=== PATIENT | female | born 2000 | race Hispanic/Latino ===

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

== ENCOUNTER 2022-01-22 12:28 | Outpatient (CLI) | payer OTHER ==
[~2022-01-22] VITALS: Ht 149.9 cm; Wt 61.8 kg
[~2022-01-22 12:28] MED LIST changes: +ONDA4TAB6 PO
[2022-01-22 12:46] VITALS: BP 109/64
[2022-01-22] MEDS ORDERED: HOME MED LIST COMPLETE! XX SCH (12:55)
[2022-01-22 14:26] VITALS: BP 106/56
[2022-01-22] MEDS ORDERED: CYCLOBENZAPRINE 10MG TABLET PO ONE (15:00)
== END 2022-01-22 15:20 | disposition home or self-care (01) ==
LOC: M LDO 12:28
PROVIDERS: ATTEND Obstetrics & Gynecology
DX: O26.892 Other specified pregnancy related conditions, second trimester (principal); R25.2 Cramp and spasm; Z3A.24 24 weeks gestation of pregnancy; M54.50 Low back pain, unspecified; O99.282 Endocrine, nutritional and metabolic diseases complicating pregnancy, second trimester; E86.0 Dehydration
CPT/HCPCS: 59025; 81001; G0378; G0463

== ENCOUNTER 2022-04-08 08:49 | Outpatient (CLI) | payer OTHER ==
[~2022-04-08] VITALS: Ht 149.9 cm; Wt 63.8 kg
[2022-04-08 09:11] VITALS: BP 95/61
[2022-04-08] MEDS ORDERED: HOME MED LIST COMPLETE! XX SCH (09:20)
== END 2022-04-08 12:00 | disposition home or self-care (01) ==
LOC: M LDO 08:49
PROVIDERS: ATTEND Registered Nurse
DX: O26.893 Other specified pregnancy related conditions, third trimester (principal); R07.89 Other chest pain; Z3A.35 35 weeks gestation of pregnancy
CPT/HCPCS: 59025; 81001; 93005; G0378; G0463

== ENCOUNTER 2022-04-27 16:24 | Outpatient (CLI) | payer OTHER ==
[~2022-04-27] VITALS: Ht 149.9 cm; Wt 65.5 kg
[2022-04-27 16:46] VITALS: BP 113/70
[2022-04-27] MEDS ORDERED: LR 1,000 ML IV ONE (18:30)
== END 2022-04-27 19:44 | disposition home or self-care (01) ==
LOC: M LDO 16:24
PROVIDERS: ATTEND Obstetrics & Gynecology
DX: O36.8130 Decreased fetal movements, third trimester, not applicable or unspecified (principal); Z3A.37 37 weeks gestation of pregnancy
CPT/HCPCS: 59025; G0463

== ENCOUNTER 2022-04-29 05:10 | Inpatient (IN) | payer OTHER ==
[~2022-04-29] VITALS: Ht 149.9 cm; Wt 65.0 kg
[2022-04-29] VITALS (51 sets, daily range): BP systolic 88–150; BP diastolic 49–97
[2022-04-29] MEDS ORDERED: HOME MED LIST COMPLETE! XX SCH (05:35)
[2022-04-29] MEDS ORDERED: OXYTOCIN DRIP 30 UNITS in IV 1 EA IV PRN ×4 (05:50)
[2022-04-29] MEDS ORDERED: METHYLERGONOVINE MALEATE 0.2 MG/ML VIAL (J2210) IM PRN (05:50)
[2022-04-29] MEDS ORDERED: TRANEXAMIC ACID INJection 1,000 MG in NS 100 ML IV PRN (05:50)
[2022-04-29] MEDS ORDERED: LACTATED RINGER'S 1000 ML IV ONE (05:50)
[2022-04-29] MEDS ORDERED: OXYTOCIN INJ 10 UNITS/ML VIAL (J2590) IV PRN (05:50)
[2022-04-29 06:37] LABS: HEMATOCRIT 36.4 % (36.0-47.0); HEMOGLOBIN 11.7 g/dl (12.0-15.5); MEAN CORPUSCULAR HEMOGLOBIN 27.6 pg (27.0-33.0); MEAN CORPUSCULAR HGB CONC 32.1 g/dl (32.0-36.5); MEAN CORPUSCULAR VOLUME 85.8 fl (80.0-96.0); PLATELET COUNT, AUTOMATED 266 10^3/uL (150-450); RED BLOOD COUNT 4.24 10^6/uL (4.00-5.40); WHITE BLOOD COUNT 17.1 10^3/uL (4.0-10.0)
[2022-04-29] MEDS ORDERED: PENICILLIN G POTASSIUM IV 5 MU in D5W MINI-BAG PLUS 100 ML IV ONE (07:00)
[2022-04-29] MEDS ORDERED: ONDANSETRON 4MG 2ML VIAL IV PRN ×2 (07:20→23:55)
[2022-04-29] MEDS ORDERED: EPIDURAL/PCA KEYS XX PRN (07:20)
[2022-04-29] MEDS ORDERED: diphenhydrAMINE 50MG/ML VIAL (J1200) IV PRN ×2 (07:20→23:55)
[2022-04-29] MEDS ORDERED: LR 500 ML IV PRN (07:20)
[2022-04-29] MEDS ORDERED: NALOXONE INJ 0.4MG/1ML VIAL (J2310 PER 1MG) IV PRN ×3 (07:20→23:55)
[2022-04-29] MEDS ORDERED: REFLB XX ONE ×4 (07:25→16:24)
[2022-04-29] MEDS: FENTANYL/ROPIVACAINE/NACL BAG 100 ML EPIDURAL SCH ×2 (07:30→16:32)
[2022-04-29] MEDS: LR 1,000 ML IV SCH ×3 (07:49→13:47)
[2022-04-29] MEDS: ePHEDrine SULFATE 25 MG/5 ML(5MG/ML) SYRINGE IVP PRN ×6 (09:20→15:48)
[2022-04-29] MEDS: PENICILLIN G POTASSIUM IV 2.5 MU in IV 1 EA IV SCH ×3 (11:47→19:21)
[2022-04-29] MEDS ORDERED: OXYTOCIN DRIP 30 UNITS in IV 1 EA IV SCH ×2 (19:25→23:55)
[2022-04-29] MEDS ORDERED: AZITHROMYCIN INJ 500 MG, VIAL MATE ADAPTER 1 EACH in NS 250 ML IV ONE (22:55)
[2022-04-29] MEDS ORDERED: ceFAZolin SOD 2 GM in IV 1 EA IV ONE (22:55)
[2022-04-29] MEDS ORDERED: BICITRA 30ML SOLN UDC PO ONE (22:55)
[2022-04-29] MEDS ORDERED: ceFAZolin 2 GM/D5W 50 ML IV BAG (J0690 PER 500MG) As Ordered ONE (22:59)
[2022-04-29] MEDS ORDERED: MORPHINE PRES-FREE INJ 10 MG/10 ML VIAL As Ordered ONE (23:00)
[2022-04-29] MEDS ORDERED: AZITHROMYCIN INJ 500MG VIAL As Ordered ONE (23:00)
[2022-04-29] MEDS ORDERED: BICITRA 30ML SOLN UDC As Ordered ONE (23:01)
[2022-04-29] MEDS ORDERED: LIDOCAINE 2% W/EPINEPHRINE 20ML VIAL **PRES FREE As Ordered ONE (23:01)
[2022-04-29] MEDS ORDERED: OXYTOCIN INJ 10 UNITS/ML VIAL (J2590) As Ordered ONE ×2 (23:02→23:37)
[2022-04-29] MEDS ORDERED: METOCLOPRAMIDE INJ 10MG/2ML VIAL (J2765 PER 1) As Ordered ONE (23:36)
[2022-04-29] MEDS ORDERED: ONDANSETRON 4MG 2ML VIAL As Ordered ONE (23:38)
[2022-04-29] MEDS ORDERED: KETOROLAC 60MG 2ML VIAL As Ordered ONE (23:38)
[2022-04-29] MEDS ORDERED: dexameTHASONE 4 MG/ML 1ML VIAL (J1100 PER 1MG) As Ordered ONE (23:38)
[2022-04-29] MEDS ORDERED: BUPIVACAINE HCL 0.25% 30ML VIAL As Ordered ONE (23:41)
[2022-04-29 23:42] LABS: CORD GAS ABE A -4.4; CORD GAS ABE V -1.6; CORD GAS HCO3 A 19.1 MEQ/L; CORD GAS HCO3 V 23.7 MEQ/L; CORD GAS O2 SAT A 99.7 %; CORD GAS O2 SAT V 94.7 %; CORD GAS PCO2 A 30.4 mmHg; CORD GAS PCO2 V 42.1 mmHg; CORD GAS PH A 7.415 UNITS; CORD GAS PH V 7.368 UNITS; CORD GAS PO2 A 181.3 mmHg; CORD GAS PO2 V 58.2 mmHg; CORD GAS SBC A 20.9 MEQ/L; CORD GAS SBC V 23.1 MEQ/L
[2022-04-29] MEDS ORDERED: MEPERIDINE INJ 25 MG/ML VIAL (J2175) IV PRN (23:55)
[2022-04-29] MEDS ORDERED: **NOTE PATIENT COMMENT** MISC XX SCH (23:55)
[2022-04-29] MEDS ORDERED: HYDROMORPHONE HCL 0.5 MG/ 0.5 ML SYRINGE (J1170 PER 1) IV PRN (23:55)
[2022-04-29] MEDS ORDERED: fentaNYL 100 MCG/2 ML INJECTION IV PRN (23:55)
[2022-04-29] MEDS ORDERED: oxyCODONE 5MG TAB PO PRN ×3 (23:55)
[2022-04-29] MEDS ORDERED: MOM 30ML SUSPENSION UDC PO PRN (23:55)
[2022-04-29] MEDS ORDERED: SIMETHICONE 80MG CHEW TAB PO PRN (23:55)
[2022-04-29] MEDS: SLF 3 ML SYR IV SCH (23:55)
[2022-04-29] MEDS ORDERED: RHOGAM 300 MCG (1500 IU) INJ (J2790) IM SCH (23:55)
[2022-04-29] MEDS ORDERED: METOCLOPRAMIDE INJ 10MG/2ML VIAL (J2765 PER 1) IV PRN (23:55)
[2022-04-30] VITALS (9 sets, daily range): BP systolic 101–141; BP diastolic 51–81
[2022-04-30] MEDS ORDERED: OXYTOCIN 30 UNITS IN 0.9% NaCl 500ML IV BAG (J2590) As Ordered ONE (00:21)
[2022-04-30] MEDS ORDERED: HYDROMORPHONE HCL 0.5 MG/ 0.5 ML SYRINGE (J1170 PER 1) As Ordered ONE (00:52)
[2022-04-30] MEDS ORDERED: OXYTOCIN DRIP 30 UNITS in IV 1 EA IV ONE (01:30)
[2022-04-30] MEDS: KETOROLAC 30 MG/ML 1ML VIAL IV SCH ×3 (06:04→18:13)
[2022-04-30 07:26] LABS: HEMATOCRIT 29.7 % (36.0-47.0); MEAN CORPUSCULAR HEMOGLOBIN 27.8 pg (27.0-33.0); MEAN CORPUSCULAR HGB CONC 32.7 g/dl (32.0-36.5); MEAN CORPUSCULAR VOLUME 85.1 fl (80.0-96.0); PLATELET COUNT, AUTOMATED 228 10^3/uL (150-450); RED BLOOD COUNT 3.49 10^6/uL (4.00-5.40); WHITE BLOOD COUNT 24.6 10^3/uL (4.0-10.0)
[2022-04-30 07:32] LABS: HEMOGLOBIN 9.7 g/dl (12.0-15.5)
[2022-04-30] MEDS: SLF 3 ML SYR IV SCH ×2 (07:55→17:23)
[2022-04-30] MEDS: DOCUSATE SODIUM 100MG CAPSULE PO SCH ×2 (09:03→20:50)
[2022-04-30] MEDS: PRENATAL VITAMINS CHEWABLE TABLET PO SCH (09:03)
[2022-05-01 02:24] VITALS: BP 113/57
[2022-05-01] MEDS: IBUPROFEN 800 MG TAB PO SCH ×2 (03:06→09:36)
[2022-05-01 06:13] VITALS: BP 102/56
[2022-05-01] MEDS: PRENATAL VITAMINS CHEWABLE TABLET PO SCH (08:12)
[2022-05-01] MEDS: DOCUSATE SODIUM 100MG CAPSULE PO SCH (08:12)
[2022-05-01] MEDS ORDERED: MEASLES,MUMPS,RUBELLA VACCINE INJ (MMR-II) (90707) SC.IMMUN ONE (09:00)
[2022-05-01] MEDS ORDERED: COLA100C5 PO (09:02)
[2022-05-01] MEDS ORDERED: IBUP80TA PO (09:02)
[2022-05-01 09:41] VITALS: BP 119/65
== END 2022-05-01 11:52 | disposition home or self-care (01) | DRG 773 ==
LOC: M LDO 05:10 → M LDI 05:39 → M OBS 04-30 02:15
PROVIDERS: ADMIT Obstetrics & Gynecology; ATTEND Obstetrics & Gynecology
PROC: 10D00Z1 Extraction of Products of Conception, Low, Open Approach (ICD-10-PCS; principal; 2022-04-29 23:15)
DX: O99.02 Anemia complicating childbirth (principal); D64.9 Anemia, unspecified; Z37.0 Single live birth; O76 Abnormality in fetal heart rate and rhythm complicating labor and delivery

== ENCOUNTER 2022-09-10 09:51 | Emergency (ER) | payer OTHER ==
[~2022-09-10] VITALS: Ht 149.9 cm; Wt 58.2 kg
[~2022-09-10 09:51] MED LIST changes: +COLA100C5 PO; +IBUP80TA PO
[2022-09-10 12:32] LABS: BASO # 0.1 10^3/uL (0.0-0.2); BASO % 0.6 % (0.0-1.0); EOS % 0.5 % (0.0-3.0); HEMATOCRIT 39.5 % (36.0-47.0); HEMOGLOBIN 12.4 g/dl (12.0-15.5); LYMPH # 2.4 10^3/uL (1.5-5.0); LYMPH % 29.4 % (24.0-44.0); MEAN CORPUSCULAR HEMOGLOBIN 26.7 pg (27.0-33.0); MEAN CORPUSCULAR HGB CONC 31.4 g/dl (32.0-36.5); MEAN CORPUSCULAR VOLUME 85.1 fl (80.0-96.0); MONO # 0.6 10^3/uL (0.0-0.8); MONO % 7.6 % (2.0-8.0); NEUTROPHILS % 61.7 % (36.0-66.0); PLATELET COUNT, AUTOMATED 424 10^3/uL (150-450); RED BLOOD COUNT 4.64 10^6/uL (4.00-5.40)
[2022-09-10 13:05] LABS: HCG, SERUM QUALITATIVE NEGATIVE (NEGATIVE)
[2022-09-10 13:06] LABS: BLOOD UREA NITROGEN 9 MG/DL (9-23); CALCIUM LEVEL 9.5 MG/DL (8.5-10.1); CARBON DIOXIDE LEVEL 25 MMOL/L (20-31); CHLORIDE LEVEL 105 MMOL/L (98-107); CREATININE FOR GFR 0.73 MG/DL (0.55-1.30); GLUCOSE, FASTING 84 MG/DL (60-100); POTASSIUM SERUM 4.8 MMOL/L (3.5-5.1); SODIUM LEVEL 138 MMOL/L (136-145)
[2022-09-10 16:36] VITALS: BP 114/60
== END 2022-09-10 16:52 | disposition home or self-care (01) ==
LOC: M ED 15:29
DX: N93.8 Other specified abnormal uterine and vaginal bleeding (principal); N83.292 Other ovarian cyst, left side

== ENCOUNTER 2022-11-24 09:53 | Emergency (ER) | payer OTHER ==
[~2022-11-24] VITALS: Ht 149.9 cm; Wt 57.5 kg
[2022-11-24] MEDS ORDERED: LOPE2CAP PO (10:16)
[2022-11-24] MEDS ORDERED: NS 1,000 ML IV ONE (13:05)
[2022-11-24] MEDS ORDERED: ONDANSETRON 4MG 2ML VIAL IV ONE (13:05)
[2022-11-24 13:22] LABS: BASO % 0.3 % (0.0-1.0); EOS # 0.1 10^3/uL (0.0-0.5); EOS % 1.4 % (0.0-3.0); HEMATOCRIT 39.3 % (36.0-47.0); LYMPH # 1.7 10^3/uL (1.5-5.0); LYMPH % 26.4 % (24.0-44.0); MEAN CORPUSCULAR HEMOGLOBIN 28.3 pg (27.0-33.0); MEAN CORPUSCULAR HGB CONC 33.1 g/dl (32.0-36.5); MEAN CORPUSCULAR VOLUME 85.6 fl (80.0-96.0); MONO # 0.8 10^3/uL (0.0-0.8); MONO % 12.3 % (2.0-8.0); NEUTROPHILS # 3.8 10^3/uL (1.5-8.5); NEUTROPHILS % 59.4 % (36.0-66.0); PLATELET COUNT, AUTOMATED 376 10^3/uL (150-450); RED BLOOD COUNT 4.59 10^6/uL (4.00-5.40); WHITE BLOOD COUNT 6.4 10^3/uL (4.0-10.0)
[2022-11-24] MEDS: KETOROLAC 30 MG/ML 1ML VIAL IV ONE ×2 (13:24→14:11)
[2022-11-24 13:41] LABS: LIPASE 29 U/L (12-53)
[2022-11-24 13:46] LABS: ALBUMIN 3.8 G/DL (3.2-5.2); ALKALINE PHOSPHATASE 66 U/L (46-116); ALT/SGPT 16 U/L (7.0-40); AST/SGOT 19 U/L (<34); BILIRUBIN,DIRECT < 0.1 MG/DL (<0.4); BILIRUBIN,TOTAL 0.2 MG/DL (0.3-1.2); BLOOD UREA NITROGEN 10 MG/DL (9-23); CALCIUM LEVEL 8.5 MG/DL (8.5-10.1); CARBON DIOXIDE LEVEL 26 MMOL/L (20-31); CHLORIDE LEVEL 105 MMOL/L (98-107); CREATININE FOR GFR 0.76 MG/DL (0.55-1.30); GLUCOSE, FASTING 80 MG/DL (60-100); POTASSIUM SERUM 4.5 MMOL/L (3.5-5.1); SODIUM LEVEL 137 MMOL/L (136-145); TOTAL PROTEIN 6.9 G/DL (5.7-8.2)
[2022-11-24 13:50] LABS: HCG, SERUM QUALITATIVE NEGATIVE (NEGATIVE)
[2022-11-24] MEDS ORDERED: ISOVUE-370 76% 100ML VIAL As Ordered ONE (13:54)
[2022-11-24] MEDS ORDERED: DICY20TA20 PO (14:33)
[2022-11-24] MEDS ORDERED: ONDA4TAB6 PO (14:33)
[2022-11-24 14:54] VITALS: BP 111/58
== END 2022-11-24 15:00 | disposition home or self-care (01) ==
LOC: M ED 09:53
DX: A09 Infectious gastroenteritis and colitis, unspecified (principal)
CPT/HCPCS: 74177; 80047; 80048; 80076; 81001; 83690; 84703; 85025; 96374; 96375; 99284; J1885; J2405; Q9967

== ENCOUNTER 2024-11-10 16:51 | Emergency (ER) | payer OTHER ==
[~2024-11-10] VITALS: Ht 149.9 cm; Wt 69.4 kg
[~2024-11-10 16:51] MED LIST changes: +DICY20TA20 PO; +LOPE2CAP PO; +ONDA-282 PO; -ONDA4TAB6 PO
[2024-11-10] MEDS ORDERED: PYRI50TA41 (17:03)
[2024-11-10] MEDS ORDERED: MULTTAB20 PO (17:03)
[2024-11-10] MEDS ORDERED: UNIS25TA3 (17:03)
[2024-11-10 18:03] LABS: BASO % 0.2 % (0.0-1.0); EOS % 0.2 % (0.0-3.0); HEMATOCRIT 42.3 % (36.0-47.0); HEMOGLOBIN 14.2 g/dl (12.0-15.5); LYMPH # 2.3 10^3/uL (1.5-5.0); LYMPH % 17.8 % (24.0-44.0); MEAN CORPUSCULAR HEMOGLOBIN 29.4 pg (27.0-33.0); MEAN CORPUSCULAR HGB CONC 33.6 g/dl (32.0-36.5); MEAN CORPUSCULAR VOLUME 87.6 fl (80.0-96.0); MONO # 0.8 10^3/uL (0.0-0.8); MONO % 6.1 % (2.0-8.0); NEUTROPHILS % 75.4 % (36.0-66.0); PLATELET COUNT, AUTOMATED 409 10^3/uL (150-450); RED BLOOD COUNT 4.83 10^6/uL (4.00-5.40); WHITE BLOOD COUNT 13.2 10^3/uL (4.0-10.0)
[2024-11-10 18:06] LABS: KETONE, URINE AUTO RFX NEGATIVE (NEGATIVE); LEUKOCYTE ESTERASE UR AUTO RFX NEGATIVE (NEGATIVE); MUCUS, URINE RFX SMALL (NEGATIVE); NITRITE, URINE AUTO RFX NEGATIVE (NEGATIVE); RBC, URINE AUTO RFX 0 /HPF (0-3); SQUAM EPITHELIAL CELL UR AURFX 3 /HPF (0-6); WBC, URINE AUTO RFX 1 /HPF (0-3)
[2024-11-10] MEDS: NS (Normal Saline) 0.9% 1,000 ML IV ONE (19:10)
[2024-11-10] MEDS: ONDANSETRON 4MG 2ML VIAL IV ONE (19:10)
[2024-11-10 19:19] LABS: BLOOD UREA NITROGEN < 5 MG/DL (9-23); CALCIUM LEVEL 10.1 MG/DL (8.5-10.1); CARBON DIOXIDE LEVEL 22 MMOL/L (20-31); CHLORIDE LEVEL 103 MMOL/L (98-107); CREATININE FOR GFR 0.65 MG/DL (0.55-1.30); GLOMERULAR FILTRATION RATE > 60.0 (>60); GLUCOSE, FASTING 74 MG/DL (60-100); POTASSIUM SERUM 3.9 MMOL/L (3.5-5.1); SODIUM LEVEL 137 MMOL/L (136-145)
[2024-11-10 20:52] VITALS: BP 108/59; TEMP 97.6; O2SAT 99
[2024-11-10] MEDS ORDERED: ONDA-282 PO (20:54)
== END 2024-11-10 21:06 | disposition home or self-care (01) ==
LOC: M ED 16:51
DX: O21.1 Hyperemesis gravidarum with metabolic disturbance (principal); Z3A.08 8 weeks gestation of pregnancy; Z79.810 Long term (current) use of selective estrogen receptor modulators (SERMs); Z79.899 Other long term (current) drug therapy
CPT/HCPCS: 80048; 81001; 84702; 85025; 96374; 99284; J2405

== ENCOUNTER 2025-01-18 17:40 | Emergency (ER) | payer OTHER ==
[~2025-01-18] VITALS: Ht 149.9 cm; Wt 73.4 kg
[~2025-01-18 17:40] MED LIST changes: +MULTTAB20 PO; +PYRI50TA41; +UNIS25TA3
[2025-01-18 18:26] LABS: BASO % 0.2 % (0.0-1.0); EOS # 0.1 10^3/uL (0.0-0.5); EOS % 0.6 % (0.0-3.0); HEMATOCRIT 36.7 % (36.0-47.0); HEMOGLOBIN 12.2 g/dl (12.0-15.5); LYMPH # 2.8 10^3/uL (1.5-5.0); MEAN CORPUSCULAR HGB CONC 33.2 g/dl (32.0-36.5); MEAN CORPUSCULAR VOLUME 90.4 fl (80.0-96.0); NEUTROPHILS # 8.7 10^3/uL (1.5-8.5); NEUTROPHILS % 68.8 % (36.0-66.0); PLATELET COUNT, AUTOMATED 338 10^3/uL (150-450); RED BLOOD COUNT 4.06 10^6/uL (4.00-5.40); WHITE BLOOD COUNT 12.6 10^3/uL (4.0-10.0)
[2025-01-18 18:56] LABS: LIPASE 48 U/L (12-53)
[2025-01-18 18:58] LABS: ALBUMIN 3.2 G/DL (3.2-5.2); ALKALINE PHOSPHATASE 54 U/L (35-104); ALT/SGPT 10 U/L (7.0-40); AST/SGOT 12 U/L (<34); BILIRUBIN,DIRECT < 0.1 MG/DL (<0.4); BILIRUBIN,TOTAL 0.3 MG/DL (0.3-1.2); TOTAL PROTEIN 6.7 G/DL (5.7-8.2)
[2025-01-18] MEDS: ACETAMINOPHEN 325 MG TAB PO ONE (19:00)
[2025-01-18 20:51] VITALS: BP 109/68; TEMP 97.9; O2SAT 100
== END 2025-01-18 20:59 | disposition home or self-care (01) ==
LOC: M ED 17:40
DX: R10.11 Right upper quadrant pain (principal); Z79.899 Other long term (current) drug therapy; Z79.810 Long term (current) use of selective estrogen receptor modulators (SERMs)

== ENCOUNTER → 2025-05-24 | Outpatient (REF) | payer OTHER | LOC: M PLALAB 10:05 | PROVIDERS: ATTEND Student in an Organized Health Care Education/Training Program | DX: Z53.9 Procedure and treatment not carried out, unspecified reason (principal) ==

== ENCOUNTER 2025-05-31 22:40 | Inpatient (IN) | payer OTHER ==
[~2025-05-31] VITALS: Ht 149.9 cm; Wt 79.9 kg
[2025-05-31] MEDS: ACETAMINOPHEN 650 MG SUPP PR ONE (00:50)
[2025-05-31 22:59] VITALS: BP 119/74
[2025-05-31] MEDS ORDERED: OXYTOCIN DRIP 30 UNITS in IV 1 EA IV PRN (23:45)
[2025-05-31] MEDS ORDERED: LR 1,000 ML IV SCH (23:45)
[2025-05-31] MEDS ORDERED: CARBOPROST TROMETHAMINE 250 MCG/ML AMP IM PRN (23:45)
[2025-05-31] MEDS ORDERED: LIDOCAINE 1% MDV 20 ML VIAL INFIL PRN (23:45)
[2025-05-31] MEDS ORDERED: OXYTOCIN INJ 10UNITS/ML 1ML VIAL IM PRN (23:45)
[2025-05-31] MEDS ORDERED: METHYLERGONOVINE MALEATE 0.2 MG/ML 1 ML VIAL IM PRN (23:45)
[2025-05-31] MEDS ORDERED: TRANEXAMIC ACID INJection 1,000 MG in NS 100 ML IV PRN (23:45)
[2025-06-01] VITALS (10 sets, daily range): BP systolic 100–126; BP diastolic 51–60; TEMP 96.8; O2SAT 97–100
[2025-06-01 00:15] LABS: PLATELET COUNT, AUTOMATED 285 10^3/uL (150-450)
[2025-06-01] MEDS: AZITHROMYCIN INJ 500 MG, VIAL MATE ADAPTER 1 EACH in NS 250 ML IV ONE (00:18)
[2025-06-01] MEDS: BICITRA 30 ML SOLN UDC PO ONE (00:19)
[2025-06-01] MEDS ORDERED: MORPHINE PRES-FREE INJ 10 MG/10 ML VIAL As Ordered ONE (01:11)
[2025-06-01] MEDS ORDERED: ONDANSETRON 4MG 2ML VIAL As Ordered ONE (01:11)
[2025-06-01] MEDS ORDERED: OXYTOCIN 30UNITS IN 0.9% NaCl 500ML IV BAG As Ordered ONE (01:11)
[2025-06-01] MEDS ORDERED: PHENYLephrine 500MCG 5ML (100MCG/ML) SYRINGE As Ordered ONE (01:12)
[2025-06-01] MEDS ORDERED: TRANEXAMIC ACID 100 MG/ML 10ML VIAL As Ordered ONE (01:14)
[2025-06-01 01:22] LABS: HIV 1&2 SCREEN NEGATIVE (NEGATIVE)
[2025-06-01 01:41] LABS: HEPATITIS C VIRUS ABY INDEX 0.02 INDEX (<0.8)
[2025-06-01] MEDS ORDERED: KETOROLAC 30 MG/ML 1 ML VIAL As Ordered ONE (01:42)
[2025-06-01 01:48] LABS: CORD GAS ABE V -6.5; CORD GAS HCO3 V 20.4 MMOL/L; CORD GAS O2 SAT V 70.3 %; CORD GAS PCO2 V 45.6 mmHg; CORD GAS PH V 7.268 UNITS; CORD GAS PO2 V 32.9 mmHg; CORD GAS SBC V 18.6 MMOL/L; CORD GAS TCO2 V 21.8 MMOL/L
[2025-06-01] MEDS ORDERED: PERCOCET 5MG/325MG TAB PO PRN ×2 (02:10)
[2025-06-01] MEDS ORDERED: MOM 30 ML SUSPENSION UDC PO PRN (02:10)
[2025-06-01] MEDS ORDERED: METHYLERGONOVINE MALEATE 0.2 MG TAB PO PRN (02:10)
[2025-06-01] MEDS ORDERED: RHOGAM 300MCG (1500IU) INJ IM SCH (02:10)
[2025-06-01] MEDS ORDERED: ONDANSETRON 4MG 2ML VIAL IV PRN (02:30)
[2025-06-01] MEDS ORDERED: diphenhydrAMINE 50 MG/ML VIAL IV PRN (02:30)
[2025-06-01] MEDS ORDERED: **NOTE PATIENT COMMENT** MISC XX SCH (02:30)
[2025-06-01] MEDS ORDERED: NALOXONE INJ 0.4 MG/1 ML VIAL IV PRN ×2 (02:30)
[2025-06-01] MEDS: ceFAZolin SODIUM 2 GM in DEXTROSE 5% (D5W) ADV/MINI-BAG 50 ML IV ONE (05:24)
[2025-06-01] MEDS: LACTATED RINGER'S 1000 ML IV STA (05:24)
[2025-06-01] MEDS: SLF 3 ML SYR IV SCH (05:25)
[2025-06-01] MEDS: LR 1,000 ML IV SCH ×2 (05:25)
[2025-06-01] MEDS: ONDANSETRON 4MG 2ML VIAL IV PRN (08:34)
[2025-06-01] MEDS: PRENATAL VITAMINS CHEWABLE TABLET PO SCH (08:48)
[2025-06-01] MEDS: LACTATED RINGER'S 1000 ML IV ONE (08:48)
[2025-06-01] MEDS: KETOROLAC 30 MG/ML 1 ML VIAL IV SCH (08:48)
[2025-06-02 02:00] VITALS: BP 109/57; O2SAT 97
[2025-06-02] MEDS: IBUPROFEN 800 MG TAB PO SCH (04:46)
[2025-06-02 05:00] VITALS: BP 89/50; O2SAT 98
[2025-06-02] MEDS: DOCUSATE SODIUM 100 MG CAPSULE PO PRN (08:07)
[2025-06-02] MEDS: SIMETHICONE 80MG CHEW TAB PO PRN (08:07)
[2025-06-02] MEDS ORDERED: FLUZONE VACCINE TRI PF(25-26) 0.5ML SYRINGE IM.IMMUN ONE (09:00)
[2025-06-02 09:26] LABS: PLATELET COUNT, AUTOMATED 235 10^3/uL (150-450)
[2025-06-02 10:00] VITALS: BP 101/57; O2SAT 97
[2025-06-02 14:00] VITALS: BP 106/64; O2SAT 97
[2025-06-02] MEDS: ACETAMINOPHEN 500 MG TAB PO PRN (14:44)
[2025-06-02 18:00] VITALS: BP 92/49; O2SAT 96
[2025-06-02 21:33] VITALS: BP 108/69; O2SAT 98
[2025-06-03 01:45] VITALS: BP 92/55; O2SAT 98
[2025-06-03 05:57] VITALS: BP 103/69; O2SAT 97
[2025-06-03] MEDS ORDERED: MEASLES,MUMPS,RUBELLA VACCINE INJ (MMR-II) SC.IMMUN ONE (09:00)
[2025-06-03] MEDS ORDERED: COLA100C5 PO (10:59)
[2025-06-03] MEDS ORDERED: IBUP80TA PO (10:59)
[2025-06-03] MEDS ORDERED: PERCOCET PO (10:59)
[2025-06-03] MEDS: FLUZONE VACCINE TRI PF(25-26) 0.5ML SYRINGE IM.IMMUN ONE (11:32)
== END 2025-06-03 12:30 | disposition home or self-care (01) | DRG 773 ==
LOC: M LDO 22:40 → M LDI 23:43 → M OBS 06-01 04:26
PROVIDERS: ADMIT Advanced Practice Midwife; ATTEND Obstetrics & Gynecology
PROC: 10D00Z1 Extraction of Products of Conception, Low, Open Approach (ICD-10-PCS; principal; 2025-06-01 00:27)
DX: O34.211 Maternal care for low transverse scar from previous cesarean delivery (principal); O75.82 Onset (spontaneous) of labor after 37 completed weeks of gestation but before 39 completed weeks gestation, with delivery by (planned) cesarean section; O99.824 Streptococcus B carrier state complicating childbirth; Z37.0 Single live birth; Z3A.38 38 weeks gestation of pregnancy

== ENCOUNTER → 2025-07-17 | Outpatient (CLI) | payer OTHER ==
[~2025-07-17] MED LIST changes: +PERCOCET PO
[2025-07-17 15:41] LABS: BASO # 0.1 10^3/uL (0.0-0.2); BASO % 0.7 % (0.0-1.0); EOS # 0.1 10^3/uL (0.0-0.5); EOS % 0.8 % (0.0-3.0); LYMPH # 2.6 10^3/uL (1.5-5.0); LYMPH % 35.4 % (24.0-44.0); MONO # 0.5 10^3/uL (0.0-0.8); MONO % 7.1 % (2.0-8.0); NEUTROPHILS # 4.0 10^3/uL (1.5-8.5); NEUTROPHILS % 55.9 % (36.0-66.0); PLATELET COUNT, AUTOMATED 432 10^3/uL (150-450)
== END ==
LOC: M PLALAB 11:49
PROVIDERS: ATTEND Obstetrics & Gynecology
DX: N93.9 Abnormal uterine and vaginal bleeding, unspecified (principal)